=== PATIENT | female | born 1945 | race Caucasian/White ===

== ENCOUNTER 2022-09-01 10:48 | Inpatient (IN) | payer MEDICARE, MEDICAID ==
[~2022-09-01] VITALS: Ht 157.5 cm; Wt 70.8 kg
[2022-09-01 08:00] VITALS: BP 106/44
[2022-09-01] MEDS ORDERED: ONDANSETRON HCL 4MG/2ML INJ IV STA (10:59)
[2022-09-01] MEDS ORDERED: SODIUM CHLORIDE 0.9% 1000ML BAG (SEPSIS BOLUS) IV ONE (11:00)
[2022-09-01] MEDS ORDERED: MORPHINE SULFATE 2 MG/ML CPJ (NOT FOR IM USE) IV ONE (11:00)
[2022-09-01 11:52] LABS: HEMATOCRIT. 38.6 % (36.0-48.0); MEAN CORPUSCULAR HEMOGLOBIN 27.8 pg (28.0-32.0); MEAN CORPUSCULAR VOLUME 82.5 fL (81.0-99.0); MEAN PLATELET VOLUME 7.8 fl (7.4-10.4); PLATELET 257 x1000/uL (130-400); RED BLOOD CELL COUNT 4.68 mill/uL (4.2-5.4); RED CELL DISTRIBUTION WIDTH 14.6 % (11.6-14.6)
[2022-09-01 12:01] LABS: CHLORIDE 104 mEq/L (98-107)
[2022-09-01 12:03] LABS: PARTIAL THROMBOPLASTIN TIME 26.2 sec (23.4-31.0)
[2022-09-01 12:22] LABS: PLATELET ESTIMATE NORMAL
[2022-09-01] MEDS ORDERED: CEFTRIAXONE 1GM PREMIX 50 ML IV ONE (12:30)
[2022-09-01 12:55] LABS: CLARITY URINE CLOUDY (CLEAR); COLOR URINE YELLOW (YELLOW); KETONES URINE 1+ (NEGATIVE); LEUKOCYTE ESTERASE URINE 3+ (NEGATIVE); NITRITE URINE POSITIVE (NEGATIVE); OCCULT BLOOD URINE TRACE (NEGATIVE); PH URINE 5.5 (4.5-8.0); PROTEIN URINE 2+ (NEGATIVE); SPECIFIC GRAVITY URINE 1.017 (1.005-1.030)
[2022-09-01] MEDS ORDERED: IPRATROPIUM/ALBUTEROL 0.5-3(2.5)MG/3ML NEB HHN PRN (15:30)
[2022-09-01] MEDS ORDERED: ONDANSETRON HCL 4MG/2ML INJ IV PRN (15:30)
[2022-09-01] MEDS ORDERED: DIPHENHYDRAMINE 50MG/ML VIAL IV PRN (15:30)
[2022-09-01] MEDS ORDERED: CLONIDINE 0.1MG TABLET PO PRN (15:30)
[2022-09-01] MEDS ORDERED: ACETAMINOPHEN 325MG TABLET PO PRN (15:30)
[2022-09-01] MEDS ORDERED: NALOXONE HCL 0.4MG/ML VIAL IV PRN (15:45)
[2022-09-01] MEDS ORDERED: DEXTROSE 50% WATER 50ML SYRINGE IV PRN (15:45)
[2022-09-01 20:00] VITALS: BP 106/44
[2022-09-01] MEDS: BLOOD SUGAR DIAGNOSTIC STRIP TEST SCH (21:07)
[2022-09-01] MEDS: INSULIN LISPRO 100 UNITS/ML SUBCUT SCH (21:08)
[2022-09-01] MEDS ORDERED: GABA-533 PO (21:46)
[2022-09-01] MEDS ORDERED: LEVO75TA7 PO ×2 (21:46)
[2022-09-01] MEDS ORDERED: PANT40TA51 PO (21:46)
[2022-09-01] MEDS ORDERED: GLIP5TAB12 MT (21:46)
[2022-09-01] MEDS ORDERED: LOPE2CAP PO (21:46)
[2022-09-01] MEDS ORDERED: METO-396 PO (21:46)
[2022-09-01] MEDS ORDERED: LOSA25TA26 PO (21:46)
[2022-09-01] MEDS ORDERED: ATOR40TA70 MT (21:46)
[2022-09-01] MEDS ORDERED: NITR0.4T49 SL (21:46)
[2022-09-01] MEDS ORDERED: BACL-141 PO (21:46)
[2022-09-01] MEDS: SODIUM CHLORIDE 0.9% 1,000 ML IV SCH (23:32)
[2022-09-02 04:41] VITALS: BP 105/47
[2022-09-02 06:27] LABS: BASOPHILS % 0.1 % (0.0-2.0); HEMATOCRIT. 31.5 % (36.0-48.0); HEMOGLOBIN. 10.6 g/dL (12.0-16.0); LYMPHOCYTES % 36.1 % (20.0-50.0); MEAN PLATELET VOLUME 7.9 fl (7.4-10.4); MONOCYTES % 6.1 % (2.0-8.0); NEUTROPHILS % 57.7 % (40.0-76.0); PLATELET 226 x1000/uL (130-400); RED BLOOD CELL COUNT 3.79 mill/uL (4.2-5.4); RED CELL DISTRIBUTION WIDTH 14.5 % (11.6-14.6)
[2022-09-02] MEDS: BLOOD SUGAR DIAGNOSTIC STRIP TEST SCH ×4 (06:43→20:45)
[2022-09-02 07:39] LABS: CHLORIDE 112 mEq/L (98-107)
[2022-09-02 08:00] VITALS: BP 117/40
[2022-09-02] MEDS: INSULIN LISPRO 100 UNITS/ML SUBCUT SCH ×4 (08:10→20:45)
[2022-09-02 12:00] VITALS: BP 122/94
[2022-09-02] MEDS: SODIUM CHLORIDE 0.9% 1,000 ML IV SCH (13:16)
[2022-09-02] MEDS ORDERED: CEFTRIAXONE 1GM PREMIX 50 ML IV SCH (14:00)
[2022-09-02 16:00] VITALS: BP 126/57
[2022-09-02 20:00] VITALS: BP 122/52
[2022-09-03] VITALS: BP 136/50
[2022-09-03 04:00] VITALS: BP 136/63
[2022-09-03] MEDS: SODIUM CHLORIDE 0.9% 1,000 ML IV SCH (05:07)
[2022-09-03] MEDS: BLOOD SUGAR DIAGNOSTIC STRIP TEST SCH ×4 (05:37→21:00)
[2022-09-03 08:00] VITALS: BP 142/58
[2022-09-03] MEDS: INSULIN LISPRO 100 UNITS/ML SUBCUT SCH ×4 (08:25→21:00)
[2022-09-03 09:42] LABS: BASOPHILS % 0.1 % (0.0-2.0); HEMATOCRIT. 32.8 % (36.0-48.0); HEMOGLOBIN. 10.9 g/dL (12.0-16.0); LYMPHOCYTES % 36.7 % (20.0-50.0); MEAN CORPUSCULAR HEMOGLOBIN 27.8 pg (28.0-32.0); MEAN CORPUSCULAR VOLUME 83.4 fL (81.0-99.0); MEAN PLATELET VOLUME 8.3 fl (7.4-10.4); NEUTROPHILS % 57.2 % (40.0-76.0); PLATELET 223 x1000/uL (130-400); RED BLOOD CELL COUNT 3.93 mill/uL (4.2-5.4); RED CELL DISTRIBUTION WIDTH 14.6 % (11.6-14.6)
[2022-09-03 12:00] VITALS: BP 122/55
[2022-09-03] MEDS ORDERED: CEFTRIAXONE 1GM PREMIX 50 ML IV SCH (14:00)
[2022-09-03 16:00] VITALS: BP 130/69
[2022-09-03] MEDS: MORPHINE SULFATE 2 MG/ML CPJ (NOT FOR IM USE) IV PRN (16:02)
[2022-09-03] MEDS ORDERED: MEROPENEM 1,000 MG in SODIUM CHLORIDE 0.9% 100 ML IV SCH (17:15)
[2022-09-03] MEDS ORDERED: MEROPENEM-0.9% SODIUM CHLORIDE 50 ML IV SCH (18:30)
[2022-09-03 20:00] VITALS: BP 156/71
[2022-09-03] MEDS ORDERED: IPRATROPIUM BROMIDE (0.02%) 0.5MG/2.5ML NEB HHN PRN (21:15)
[2022-09-03] MEDS ORDERED: ALBUTEROL (0.083%) 2.5MG/3ML NEB HHN PRN (21:15)
[2022-09-04] VITALS: BP 129/54
[2022-09-04 04:00] VITALS: BP 130/58
[2022-09-04] MEDS: SODIUM CHLORIDE 0.9% 1,000 ML IV SCH (04:56)
[2022-09-04] MEDS: BLOOD SUGAR DIAGNOSTIC STRIP TEST SCH ×2 (06:59→12:40)
[2022-09-04 08:00] VITALS: BP 166/79
[2022-09-04] MEDS: INSULIN LISPRO 100 UNITS/ML SUBCUT SCH ×2 (08:04→13:10)
[2022-09-04] MEDS: MORPHINE SULFATE 2 MG/ML CPJ (NOT FOR IM USE) IV PRN (10:34)
[2022-09-04] MEDS ORDERED: NITR100C11 MT (10:42)
[2022-09-04 12:00] VITALS: BP 139/72
[2022-09-04 13:01] VITALS: BP 139/72
== END 2022-09-04 13:51 | disposition home or self-care (01) | DRG 871 ==
LOC: ER 10:59 → 7WST 14:17 → EDBEDREQ 14:26 → EDBEDREQTM 14:26 → ENRESERV 15:39
PROVIDERS: ADMIT Internal Medicine; ATTEND Internal Medicine
DX: A41.9 Sepsis, unspecified organism (principal); G93.41 Metabolic encephalopathy; N39.0 Urinary tract infection, site not specified; I69.351 Hemiplegia and hemiparesis following cerebral infarction affecting right dominant side; E11.9 Type 2 diabetes mellitus without complications; I69.392 Facial weakness following cerebral infarction; I10 Essential (primary) hypertension; E78.00 Pure hypercholesterolemia, unspecified; I25.10 Atherosclerotic heart disease of native coronary artery without angina pectoris; E78.5 Hyperlipidemia, unspecified; B96.20 Unspecified Escherichia coli [E. coli] as the cause of diseases classified elsewhere; R65.20 Severe sepsis without septic shock; N28.1 Cyst of kidney, acquired; Z95.5 Presence of coronary angioplasty implant and graft
CPT/HCPCS: 36415; 71045; 74176; 80048; 80053; 81003; 82962; 83036; 83605; 83880; 84145; 84484; 85025; 86850; 86900; 87186; 93005; 93970; 99291; J0696; J1815; J2185; J2270; J2405; J7030